=== PATIENT | male | born 1990 | race African-American/Black ===

== ENCOUNTER 2022-03-26 13:45 | Emergency (ER) | payer OTHER ==
[~2022-03-26] VITALS: Ht 175.3 cm; Wt 90.0 kg
[2022-03-26 14:00] VITALS: BP 133/88
[2022-03-26] MEDS ORDERED: PERTUSS(ACELL),DIPH,TET VAC/PF 0.5 ML SYRINGE IM. ONE (15:00)
[2022-03-26] MEDS ORDERED: AMOX TR/POT CLAV 875 MG/125 MG TABLET PO ONE (15:00)
[2022-03-26] MEDS ORDERED: AMOX1TAB16 PO (15:18)
== END 2022-03-26 15:43 | disposition home or self-care (01) ==
LOC: EMS 13:52
DX: S51.851A Open bite of right forearm, initial encounter (principal); F17.210 Nicotine dependence, cigarettes, uncomplicated; F12.90 Cannabis use, unspecified, uncomplicated; W54.0XXA Bitten by dog, initial encounter; Y93.89 Activity, other specified; Y92.89 Other specified places as the place of occurrence of the external cause; Y99.8 Other external cause status
CPT/HCPCS: 90471; 90715; 99283